=== PATIENT | female | born 1985 | race Caucasian/White ===

== ENCOUNTER 2022-05-15 20:38 | Emergency (ER) | payer BC ==
[~2022-05-15] VITALS: Ht 162.6 cm; Wt 56.7 kg
--- NOTE | 2022-05-15 21:30 | NUR ---
BIBHUSBAND. L FOREHEAD HEMATOMA, UPPER AND LOWER LIP PAIN S/P GLF. DENIES KO, NO BT USE. TOOK TYLENOL AND IBUPROFEN AFTER FALL. PATIENT IS AAOX4. ABLE TO MAKE NEEDS KNOWN. PLACED COMFORTABLY IN BED. VITALS CHECKED.
--- NOTE | 2022-05-15 21:38 | NUR ---
SEEN BY DR SPENCER AT BEDSIDE
--- NOTE | 2022-05-15 21:49 | NUR ---
BROUGHT TO CT DEPT
--- NOTE | 2022-05-15 22:03 | NUR ---
CAME BACK FROM CT DEPT
--- NOTE | 2022-05-15 23:42 | NUR ---
Patient discharged to home in stable condition. Written and verbal after care instructions given. Patient verbalizes understanding of instruction.
[2022-05-15 23:43] VITALS: BP 135/77
== END 2022-05-15 23:43 | disposition home or self-care (01) ==
LOC: ER 20:45
DX: S01.511A Laceration without foreign body of lip, initial encounter (principal); W18.30XA Fall on same level, unspecified, initial encounter; Y93.89 Activity, other specified; Y92.89 Other specified places as the place of occurrence of the external cause; Y99.8 Other external cause status
CPT/HCPCS: 70450-TC; 70486-TC; 72125-TC